=== PATIENT | male | born 1970 | race American Indian/Alaskan Native ===

== ENCOUNTER 2017-03-16 18:42 | Emergency (ER) | payer SELFPAY ==
[2017-03-16 18:51] VITALS: BMI 27.4
[2017-03-16 18:54] VITALS: TEMP 98.9; O2SAT 97
--- NOTE | 2017-03-16 19:23 | ED PDOC ---
Arrival/HPI - General Chief Complaint: Headache Time Seen by Provider: 03/16/17 19:18 - History of Present Illness Narrative History of Present Illness (Text): 46 y/o M c PMHx asthma p/w headache x 1 week. Pain is L sided temporal, constant , worse in morning. States has never had before. Denies fever, stiff neck, vision change, nausea, vomiting, photophobia, phonophobia, household members with headache, recent travel, recent procedures. Has been taking ibuprofen for relief but concerned that taking too much. Past Medical History - Infectious Disease Hx of Infectious Diseases: None - Tetanus Immunization Tetanus Immunization: Unknown - Pulmonary Hx Asthma: Yes - Psychiatric Hx Substance Use: No - Surgical History Hx Orthopedic Surgery: Yes (HX of fx jaw and metal plate in chin) - Anesthesia Hx Anesthesia: Yes Hx Anesthesia Reactions: No - Suicidal Assessment Feels Threatened In Home Enviroment: No Family/Social History Family/Social History: No Known Family HX Smoking Status: Never Smoked Hx Alcohol Use: No (beer) Hx Substance Use: No Hx Substance Use Treatment: No Allergies/Home Meds Allergies/Adverse Reactions: Allergies No Known Allergies Allergy (Verified 03/16/17 18:52) Review of Systems - Physician Review All systems were reviewed & negative as marked: Yes - Review of Systems Constitutional: absent: Fevers Respiratory: absent: SOB Physical Exam - Physical Exam Narrative Physical Exam (Text): Constitutional: No acute distress. Head: Palpable temporal arteries. Normocephalic. Atraumatic. Eyes: PERRL. ENT: Moist mucous membranes. Neck: Supple. No nuchal ridigity. Cardiovascular: Regular rate. Chest: No tenderness. Respiratory: Clear to auscultation bilaterally. GI: Soft. Nontender. Nondistended. Back: No CVA tenderness. Musculoskeletal: No tenderness or swelling of extremities. Skin: No rash. Neurologic: Alert, no focal deficit. CN II-XII intact. Motor 5/5 x 4. Sensation to light touch intact. FTN normal. Vital Signs Reviewed: Yes Vital Signs Temp Pulse Resp BP Pulse Ox 03/16/17 20:15 75 18 124/76 97 03/16/17 18:52 98.9 F 80 16 126/89 97 Temperature: Afebrile Blood Pressure: Normal Pulse: Regular Respiratory Rate: Normal Medical Decision Making ED Course and Treatment: Patient with new headache, no similar events in past. No neurological deficit. Will obtain CT Head, treat with acetaminophen and Reglan and reassess. If no emergent finding, recommended follow up with neurology for further evaluation. Instructed to return to the ER for sudden weakness, numbness, vision change, intractible vomiting, stiff neck, fever, or any other problem. EXAM: CT Head Without Intravenous Contrast FINDINGS: Brain: No intracranial hemorrhage. No mass. No definite edema. Ventricles: No hydrocephalus. Bones/joints: No acute fracture. Mild sclerosis of LEFT mandibular condyle. Soft tissues: Unremarkable. Sinuses: Complete opacification of frontal sinuses. Scattered mild mucosal thickening of ethmoid sinuses. Moderate mucosal thickening of LEFT sphenoid sinus. Minimal mucosal thickening of maxillary sinuses. Mastoid air cells: No mastoid effusion. Orbits: Unremarkable as visualized. IMPRESSION: 1. No acute intracranial abnormality. 2. Sinus disease. 3. Incidental/non-acute findings are described above. Dictated and Authenticated by: Marin Austin MD 03/16/2017 8:57 PM Eastern Time ([place] & [place]) - RAD Interpretation Narrative RAD Interpretations (Text): EXAM: CT Head Without Intravenous Contrast FINDINGS: Brain: No intracranial hemorrhage. No mass. No definite edema. Ventricles: No hydrocephalus. Bones/joints: No acute fracture. Mild sclerosis of LEFT mandibular condyle. Soft tissues: Unremarkable. Sinuses: Complete opacification of frontal sinuses. Scattered mild mucosal thickening of ethmoid sinuses. Moderate mucosal thickening of LEFT sphenoid sinus. Minimal mucosal thickening of maxillary sinuses. Mastoid air cells: No mastoid effusion. Orbits: Unremarkable as visualized. IMPRESSION: 1. No acute intracranial abnormality. 2. Sinus disease. 3. Incidental/non-acute findings are described above. Radiology Orders: 03/16/17 19:20 HEAD W/O CONTRAST [CT] Stat Industrial Court Magistrate: Radiologist - Medication Orders Current Medication Orders: Discontinued Medications Acetaminophen (Tylenol 325mg Tab) 975 mg PO STAT STA Stop: 03/16/17 19:20 Last Admin: 03/16/17 19:50 Dose: 975 mg Metoclopramide HCl (Reglan) 10 mg PO STAT STA Stop: 03/16/17 19:20 Last Admin: 03/16/17 19:50 Dose: 10 mg Disposition/Present on Arrival - Present on Arrival Any Indicators Present on Arrival: No History of DVT/PE: No History of Uncontrolled Diabetes: No Urinary Catheter: No History of Decub. Ulcer: No History Surgical Site Infection Following: None - Disposition Have Diagnosis and Disposition been Completed?: Yes Diagnosis: Headache Disposition: HOME/ ROUTINE Disposition Time: 21:04 Patient Plan: Discharge Patient Problems: Current Active Problems Problem Status Onset Headache Acute Condition: STABLE Discharge Instructions (ExitCare): Acute Headache (ED) Prescriptions: Guaifenesin [Mucinex] 1 tab PO BID #18 tab Referrals: Jericho Brown, [Primary Care Provider] - Follow up with primary
[2017-03-16 20:15] VITALS: BP 124/76; PULSE 75; RESP 18
--- NOTE | 2017-03-16 20:58 | CT ---
EXAM: CT Head Without Intravenous Contrast CLINICAL HISTORY: 46 years old, male; Pain; Headache TECHNIQUE: Axial computed tomography images of the head/brain without intravenous contrast. This CT exam was performed using one or more of the following dose reduction techniques: automated exposure control, adjustment of the mA and/or kV according to patient size, and/or use of iterative reconstruction technique. COMPARISON: No relevant prior studies available. FINDINGS: Brain: No intracranial hemorrhage. No mass. No definite edema. Ventricles: No hydrocephalus. Bones/joints: No acute fracture. Mild sclerosis of LEFT mandibular condyle. Soft tissues: Unremarkable. Sinuses: Complete opacification of frontal sinuses. Scattered mild mucosal thickening of ethmoid sinuses. Moderate mucosal thickening of LEFT sphenoid sinus. Minimal mucosal thickening of maxillary sinuses. Mastoid air cells: No mastoid effusion. Orbits: Unremarkable as visualized. IMPRESSION: 1. No acute intracranial abnormality. 2. Sinus disease. 3. Incidental/non-acute findings are described above.
== END 2017-03-16 21:40 | disposition home or self-care (01) ==
LOC: ED 18:42
DX: R51 Headache (principal)

== ENCOUNTER 2017-03-31 06:52 | Emergency (ER) | payer SELFPAY ==
[2017-03-31 06:55] VITALS: BMI 25.7
[2017-03-31] MEDS ORDERED: Albuterol-Ipratrop 3 mg / 0.5 (3 ml) UD IH STA (07:25)
[2017-03-31] MEDS ORDERED: Magnesium Sulfate 2 GM in Sodium Chloride 0.9% 100 ML IVPB ONE (07:26)
[2017-03-31 07:50] LABS: ADD MANUAL DIFF? NO
[2017-03-31 07:54] LABS: BASO # 0.04 K/mm3 (0.0-2.0); BASO % 0.5 % (0.0-3.0); EOS # 0.6 (0.0-0.7); EOS % 7.3 % (1.5-5.0); GRAN # 3.42 (1.4-6.5); GRAN % 44.8 % (50.0-68.0); HEMATOCRIT 39.1 % (42.0-52.0); LYMPH % 39.2 % (22.0-35.0); MEAN CELL VOLUME 85.9 fL (80.0-105.0); MEAN CORPUSCULAR HEMOGLOBIN 28.6 pg (25.0-35.0); MEAN CORPUSCULAR HGB CONC 33.2 g/dl (31.0-37.0); MEAN PLATELET VOLUME 9.8 fl (7.0-11.0); MONO # 0.6 (0.1-0.6); MONO % 8.2 % (1.0-6.0); PLATELET COUNT 261 10^3/uL (120.0-450.0); RED CELL DISTRIBUTION WIDTH 13.7 % (11.5-14.5); WHITE BLOOD COUNT 7.7 10^3/ul (4.5-11.0)
[2017-03-31 08:05] LABS: ALB/GLOB RATIO 1.3 (1.1-1.8); ALKALINE PHOSPHATASE 64 U/L (38-133); ALT/SGPT 34 U/L (7-56); AST/SGOT 33 U/L (15-59); BILIRUBIN,TOTAL 0.3 mg/dL (0.2-1.3); BLOOD UREA NITROGEN 19 mg/dL (7-21); CALCIUM 8.6 mg/dL (8.4-10.5); CARBON DIOXIDE 28 mmol/L (21-33); CHLORIDE 103 mmol/L (95-110); GFR AFRICAN-AMERICAN > 60; GLUCOSE,RANDOM 117 mg/dL (70-110); SODIUM 140 mmol/L (132-148); TOTAL PROTEIN 7.5 g/dL (5.8-8.3)
--- NOTE | 2017-03-31 08:12 | ED PDOC ---
Arrival/HPI - General Chief Complaint: Shortness Of Breath Time Seen by Provider: 03/31/17 07:24 Historian: Patient - History of Present Illness Narrative History of Present Illness (Text): 03/31/17 07:53 A 46 year old male, whose past medical history includes asthma, presents to emergency department complaining of shortness of breath and wheezing that began this morning. Patient notes he used 3 pump and 1 nebulizer treatment at home with no relief. He denies any cough, fever, sick contact, chest pain, or any other complaints at this time. Patient has never been hospitalized for his asthma or put on the Bi-Pap Mask. PMD: None Time/Duration: 1 hour Symptom Onset: Sudden Symptom Course: Unchanged Quality: Other Activities at Onset: Rest Context: Home Past Medical History - Provider Review Nursing Documentation Reviewed: Yes - Infectious Disease Hx of Infectious Diseases: None - Tetanus Immunization Tetanus Immunization: Unknown - Cardiac Hx Cardiac Disorders: No - Pulmonary Hx Asthma: Yes - Psychiatric Hx Substance Use: No - Surgical History Hx Orthopedic Surgery: Yes (HX of fx jaw and metal plate in chin) - Anesthesia Hx Anesthesia: Yes Hx Anesthesia Reactions: No - Suicidal Assessment Feels Threatened In Home Enviroment: No Family/Social History - Physician Review Nursing Documentation Reviewed: Yes Family/Social History: Unknown Family HX Smoking Status: Never Smoked Hx Alcohol Use: No (beer) Hx Substance Use: No Hx Substance Use Treatment: No Allergies/Home Meds Allergies/Adverse Reactions: Allergies No Known Allergies Allergy (Verified 03/16/17 18:52) Review of Systems - Physician Review All systems were reviewed & negative as marked: Yes - Review of Systems Constitutional: absent: Fevers Respiratory: SOB. absent: Cough Cardiovascular: absent: Chest Pain Gastrointestinal: absent: Nausea, Vomiting Physical Exam Vital Signs Reviewed: Yes Vital Signs Temp Pulse Resp BP Pulse Ox 03/31/17 09:33 98 F 90 18 121/72 94 L 03/31/17 07:25 18 03/31/17 07:01 93 H 16 126/74 100 Blood Pressure: Normal Pulse: Regular Respiratory Rate: Normal Appearance: Positive for: Well-Appearing, Non-Toxic, Comfortable Pain Distress: None Mental Status: Positive for: Alert and Oriented X 3 - Systems Exam Head: Present: Atraumatic, Normocephalic Pupils: Present: PERRL Extroacular Muscles: Present: EOMI Conjunctiva: Present: Normal Mouth: Present: Moist Mucous Membranes Neck: Present: Normal Range of Motion Respiratory/Chest: Present: Good Air Exchange, Wheezes (very mild diffuse wheezing). No: Respiratory Distress, Accessory Muscle Use Cardiovascular: Present: Regular Rate and Rhythm, Normal S1, S2. No: Murmurs Abdomen: Present: Normal Bowel Sounds. No: Tenderness, Distention, Peritoneal Signs Back: Present: Normal Inspection Upper Extremity: Present: Normal Inspection. No: Cyanosis, Edema Lower Extremity: Present: Normal Inspection. No: Edema Neurological: Present: GCS=15, CN II-XII Intact, Speech Normal Skin: Present: Warm, Dry, Normal Color. No: Rashes Psychiatric: Present: Alert, Oriented x 3, Normal Insight, Normal Concentration Medical Decision Making ED Course and Treatment: 03/31/17 07:53 Impression: A 46 year old male with shortness of breath and wheezing. Differential Diagnosis include but are not limited to: asthma exacerbation vs. pneumonia vs. bronchitis Plan: -- EKG -- Chest X-ray -- Labs -- Duoneb, IV Magnesium Sulfate and Solu-Medrol -- Reassess and disposition Prior Visits: Notes and results from previous visits were reviewed. The patient last presented to the emergency department on 03/16/17 for evaluation of a headache. Progress Notes: EKG: Ordered, reviewed, and independently interpreted the EKG. Rate : 74 BPM Rhythm : NSR Interpretation : normal intervals, normal axis 03/31/17 09:25 Chest X-ray: Creator : Markos Varela MD COMPARISON: No prior. FINDINGS: LUNGS: No active pulmonary disease. PLEURA: No significant pleural effusion identified, no pneumothorax apparent. CARDIOVASCULAR: Normal. OSSEOUS STRUCTURES: No significant abnormalities. VISUALIZED UPPER ABDOMEN: Normal. OTHER FINDINGS: None. IMPRESSION: No active disease. 03/31/17 09:30 On re-evaluation, the patient feels better and is in no acute distress. On reexamination the patient is no longer wheezing and his lungs are clear to auscultations. I have discussed the results and plan with the patient, who expresses understanding. Patient in agreement with plan to discharged home. Patient is stable for discharge. Patient was instructed to follow up with physician/clinic in 1-2 days or return if symptoms worsen or new concerning symptoms arise. - Critical Care Critical Care Minutes: 30 minutes - Lab Interpretations Lab Results: 03/31/17 07:40 03/31/17 07:40 Lab Results 03/31/17 07:40: Lactate Dehydrogenase 526, Total Creatine Kinase 829 H, CK-MB ( CK-2) 2.2, CK-MB (CK-2) % Cancelled, Troponin I < 0.01 03/31/17 07:40: Sodium 140, Potassium 4.0, Chloride 103, Carbon Dioxide 28, Anion Gap 13, BUN 19, Creatinine 0.8, Est GFR ( Amer) > 60, Est GFR (Non- Af Amer) > 60, Random Glucose 117 H, Calcium 8.6, Total Bilirubin 0.3, AST 33, ALT 34, Alkaline Phosphatase 64, Total Protein 7.5, Albumin 4.2, Globulin 3.2, Albumin/Globulin Ratio 1.3 03/31/17 07:40: WBC 7.7, RBC 4.55, Hgb 13.0 L, Hct 39.1 L, MCV 85.9, MCH 28.6, MCHC 33.2, RDW 13.7, Plt Count 261, MPV 9.8, Gran % 44.8 L, Lymph % (Auto) 39.2 H, [place] % (Auto) 8.2 H, Eos % (Auto) 7.3 H, Baso % (Auto) 0.5, Gran # 3.42, Lymph # 3.0, [place] # 0.6, Eos # 0.6, Baso # 0.04 I have reviewed the lab results: Yes - RAD Interpretation Radiology Orders: 03/31/17 07:25 CHEST PORTABLE [RAD] Stat - Medication Orders Current Medication Orders: Discontinued Medications Albuterol/Ipratropium (Duoneb 3 Mg/0.5 Mg (3 Ml) Ud) 3 ml IH STAT STA Stop: 03/31/17 07:26 Last Admin: 03/31/17 07:47 Dose: 3 ml Magnesium Sulfate 2 gm/ Sodium (Chloride) 104 mls @ 102 mls/hr IVPB ONCE ONE Stop: 03/31/17 08:27 Last Admin: 03/31/17 08:41 Dose: 102 mls/hr Methylprednisolone (Solu-Medrol) 125 mg IVP STAT STA Stop: 03/31/17 07:26 Last Admin: 03/31/17 07:47 Dose: 125 mg - Scribe Statement The provider has reviewed the documentation as recorded by the Vincenzoibe Jamel Guerrero Provider Vincenzoibe Attestation: All medical record entries made by the Vincenzoibbere were at my direction and personally dictated by me. I have reviewed the chart and agree that the record accurately reflects my personal performance of the history, physical exam, medical decision making, and the department course for this patient. I have also personally directed, reviewed, and agree with the discharge instructions and disposition. Disposition/Present on Arrival - Present on Arrival Any Indicators Present on Arrival: No History of DVT/PE: No History of Uncontrolled Diabetes: No Urinary Catheter: No History of Decub. Ulcer: No History Surgical Site Infection Following: None - Disposition Have Diagnosis and Disposition been Completed?: Yes Diagnosis: Asthma exacerbation Disposition: HOME/ ROUTINE Disposition Time: 09:30 Condition: IMPROVED Discharge Instructions (ExitCare): Asthma (ED) Additional Instructions: Thank you for letting us take care of you today. Your provider was Dr. Noyola. You were treated for asthma. The emergency medical care you received today was directed at your acute symptoms. If you were prescribed any medication , please fill it and take as directed. It may take several days for your symptoms to resolve. Return to the Emergency Department if your symptoms worsen , do not improve, or if you have any other problems. Please contact your doctor or call one of the physicians/clinics you have been referred to that are listed on the Patient Visit Information form that is included in your discharge packet. Bring any paperwork you were given at discharge with you along with any medications you are taking to your follow up visit. Our treatment cannot replace ongoing medical care by a primary care provider (PCP) outside of the emergency department. Thank you for allowing the [facility] team to be part of your care today. Follow up with the clinic in 2-3 days for re-evaluation. Prescriptions: predniSONE [Prednisone] 40 mg PO DAILY #10 tab Referrals: [facility] [Outside] - Follow up with primary [facility] [Outside] - Follow up with primary [facility] Shaquille Brown, [Primary Care Provider] - Follow up with primary
[2017-03-31 08:57] LABS: TROPONIN I < 0.01 ng/mL
--- NOTE | 2017-03-31 09:25 | RAD ---
HISTORY: SOB COMPARISON: No prior. FINDINGS: LUNGS: No active pulmonary disease. PLEURA: No significant pleural effusion identified, no pneumothorax apparent. CARDIOVASCULAR: Normal. OSSEOUS STRUCTURES: No significant abnormalities. VISUALIZED UPPER ABDOMEN: Normal. OTHER FINDINGS: None. IMPRESSION: No active disease.
[2017-03-31 09:34] VITALS: BP 121/72; PULSE 90; RESP 18; TEMP 98; O2SAT 94
--- NOTE | 2017-03-31 15:17 | CARD ---
APPROVED REPORT EKG Measurement Heart [id number] <Conclusion> Normal sinus rhythm Minimal voltage criteria for LVH, may be normal variant Borderline ECG
== END 2017-03-31 09:47 | disposition home or self-care (01) ==
LOC: ED 06:52
DX: J45.901 Unspecified asthma with (acute) exacerbation (principal)
CPT/HCPCS: 71010; 80053; 82550; 82553; 83615; 84484; 85025; 93005; 96365; 96375; 99284; J2930; J3475